=== PATIENT | female | born 1935 | race Caucasian/White ===

== ENCOUNTER 2017-12-23 12:57 | Emergency (ER) | payer OTHER ==
[~2017-12-23] VITALS: Ht 154.9 cm; Wt 76.2 kg
[2017-12-23] MEDS ORDERED: ASPIR 8181 MG PO (13:21)
[2017-12-23] MEDS ORDERED: FISH OIL 1,001000 M2 PO (13:21)
[2017-12-23] MEDS ORDERED: KLOR-CON 1010 MEQ PO (13:22)
[2017-12-23] MEDS ORDERED: NEXIUM40 MG PO (13:22)
[2017-12-23] MEDS ORDERED: PREDNISONE 5 MG5 M1 PO (13:23)
[2017-12-23] MEDS ORDERED: VITAMIN D1000 UNI1 PO (13:23)
[2017-12-23] MEDS ORDERED: FOLIC ACID1 MG PO (13:23)
[2017-12-23] MEDS ORDERED: PREDNISONE 10 M10 MG PO (13:23)
[2017-12-23] MEDS ORDERED: TRAZODONE 150150 M1 PO ×2 (13:24→13:25)
[2017-12-23] MEDS ORDERED: XANAX 0.25 MG0.25 MG PO (13:24)
[2017-12-23] MEDS ORDERED: ARICEPT 5 MG TAB5 MG PO (13:26)
[2017-12-23] MEDS ORDERED: METHOTREXATE 22.5 MG PO (13:26)
[2017-12-23] MEDS ORDERED: DEMADEX20 MG PO (13:26)
[2017-12-23] MEDS ORDERED: ULTRAM 50MG TAB50 MG PO (13:27)
[2017-12-23] MEDS ORDERED: MIRALAX17 GM PO (13:27)
[2017-12-23 15:37] LABS: HEMATOCRIT 36.3 % (37.0-47.0); HEMOGLOBIN 12.1 gm/dL (12.0-15.0); MCHC 33.3 g/dL (28.0-37.0); MCV 93.1 fL (80.0-100.0); MPV 7.9 fl. (7.2-11.1); NUCLEATED RBCS 0 /100WBC; PLATELET COUNT* 243 thou/uL (150-400); RDW-CV 15.8 % (10.5-14.5); WBC 8.3 thou/uL (4.0-11.0)
[2017-12-23 15:46] LABS: ANION GAP 9 mmol/L (7-16); BUN 12 mg/dL (7-18); CALCIUM 8.7 mg/dL (8.5-10.1); CHLORIDE 106 mmol/L (98-107); CO2 25 mmol/L (21-32); GLUCOSE 124 mg/dL (70-99); POTASSIUM 4.2 mmol/L (3.5-5.1); PROTIME 9.4 Seconds (9.20-11.50); SODIUM 140 mmol/L (136-145)
[2017-12-23 15:53] LABS: ALBUMIN 2.7 g/dL (3.4-5.0); ALKALINE PHOSPHATASE 82 U/L (46-116); SGOT 19 U/L (15-37); SGPT 23 U/L (30-65); TOTAL BILIRUBIN 0.5 mg/dL (<0.1-1.0); TOTAL PROTEIN 5.9 g/dL (6.4-8.2); TROPONIN-I LEVEL <0.06 ng/mL (<0.06)
[2017-12-23 16:08] LABS: ABSOLUTE LYMPHOCYTES 0.6 thou/uL (0.8-5.3); ABSOLUTE MONOCYTES 0.3 thou/uL (0.0-1.2); ABSOLUTE NEUTROPHILS 7.4 thou/uL (1.6-8.1); PLATELET ESTIMATE ADEQUATE
--- NOTE | 2017-12-23 16:54 | EKG ---
[place] [address] ELECTROCARDIOGRAM REPORT Name: PINGRAFAEL Room: [facility]#: [id number] Admission: 12/23/17 Attend Phys: Discharge: Date of : 33 Report #: [id number] THIS REPORT FOR: //name// [facility] ED Test Date: 2017-12-23 Test Time: 14:25:32 Pat Name: RAFAEL FENG Department: Room: Gender: F Tv Production Assistant: Laurie JOINER : 1935 Requested By: Gloria Gallagher Order Number: [id number] MD: Silvino Davis Measurements Intervals [place] Rate: 91 P: HI: QRS: -40 QRSD: 83 T: 61 QT: 343 QTc: 423 Interpretive Statements sinus rhythm Left anterior fascicular block Compared to ECG 07/30/2008 10:07:10 Sinus bradycardia no longer present Electronically Signed On 12-23-2017 16:54:00 ACCREDITED PHARMACY TECHNICIAN by Silvino Davis [email or web address] <ELECTRONICALLY SIGNED> By: Silvino Davis MD, [facility] 12/23/17 1654 D: 01/1424 1425 Silvino Davis MD, FACC /EPI
[2017-12-23 17:33] LABS: INFLUENZA A ANTIGEN None Detected (None Detect); INFLUENZA B ANTIGEN None Detected (None Detect)
[2017-12-23] MEDS ORDERED: PREDNISONE 20 M20 M1 PO (17:38)
[2017-12-23] MEDS ORDERED: SPACERADULT INH (17:38)
[2017-12-23] MEDS ORDERED: PROAIR HFA8.5 GM INH (17:38)
[2017-12-23] MEDS ORDERED: ZPAK PO (17:38)
[2017-12-23 18:02] VITALS: BP 140/64
== END 2017-12-23 18:04 | disposition home or self-care (01) ==
LOC: M.ERS 12:57
PROVIDERS: Nurse Practitioner Family
DX: J20.9 Acute bronchitis, unspecified (principal); F41.9 Anxiety disorder, unspecified; Z88.1 Allergy status to other antibiotic agents; Z88.5 Allergy status to narcotic agent; Z88.0 Allergy status to penicillin; Z88.2 Allergy status to sulfonamides; Z88.8 Allergy status to other drugs, medicaments and biological substances; Z90.710 Acquired absence of both cervix and uterus; Z98.890 Other specified postprocedural states

== ENCOUNTER 2018-01-04 08:48 | Inpatient (IN) | payer OTHER ==
[~2018-01-04] VITALS: Ht 152.4 cm; Wt 72.6 kg
[~2018-01-04 08:48] MED LIST: ARICEPT 5 MG TAB5 MG PO; ASPIR 8181 MG PO; DEMADEX20 MG PO; FISH OIL 1,001000 M2 PO; FOLIC ACID1 MG PO; KLOR-CON 1010 MEQ PO; METHOTREXATE 22.5 MG PO; MIRALAX17 GM PO; NEXIUM40 MG PO; PREDNISONE 10 M10 MG PO; PREDNISONE 20 M20 M1 PO; PREDNISONE 5 MG5 M1 PO; PROAIR HFA8.5 GM INH; SPACERADULT INH; TRAZODONE 150150 M1 PO; ULTRAM 50MG TAB50 MG PO; VITAMIN D1000 UNI1 PO; XANAX 0.25 MG0.25 MG PO; ZPAK PO
[2018-01-04 09:02] VITALS: BP 123/62
[2018-01-04 10:01] LABS: HEMATOCRIT 35.2 % (37.0-47.0); HEMOGLOBIN 11.7 gm/dL (12.0-15.0); MCH 31.1 pg (26.0-34.0); MCHC 33.3 g/dL (28.0-37.0); MCV 93.5 fL (80.0-100.0); NUCLEATED RBCS 0 /100WBC; PLATELET COUNT* 263 thou/uL (150-400); RBC 3.77 mil/uL (4.20-5.00); RDW-CV 16.2 % (10.5-14.5)
[2018-01-04 10:07] LABS: CALCIUM 9.2 mg/dL (8.5-10.1); CREATININE 1.1 mg/dL (0.6-1.3); POTASSIUM 3.8 mmol/L (3.5-5.1)
[2018-01-04 10:12] LABS: ALBUMIN 2.5 g/dL (3.4-5.0); TOTAL BILIRUBIN 0.9 mg/dL (<0.1-1.0); TOTAL PROTEIN 6.3 g/dL (6.4-8.2)
[2018-01-04 10:24] LABS: ABSOLUTE LYMPHOCYTES 0.2 thou/uL (0.8-5.3); ABSOLUTE MONOCYTES 0.2 thou/uL (0.0-1.2); ABSOLUTE NEUTROPHILS 17.6 thou/uL (1.6-8.1)
[2018-01-04 10:25] LABS: PLATELET ESTIMATE ADEQUATE
[2018-01-04 10:57] LABS: URINE BILIRUBIN NEGATIVE (Negative); URINE BLOOD NEGATIVE (Negative); URINE CLARITY SL CLOUDY; URINE COLOR YELLOW; URINE GLUCOSE-RANDOM NEGATIVE (Negative); URINE KETONES NEGATIVE (Negative); URINE LEUKOCYTES-REFLEX NEGATIVE (Negative); URINE PROTEIN NEGATIVE (Negative); URINE SPECIFIC GRAVITY 1.015 (1.005-1.030); URINE UROBILINOGEN 0.2 E.U./dl (0.2-1.0)
[2018-01-04 10:59] LABS: URINE NITRITE-REFLEX POSITIVE (Negative)
[2018-01-04 11:06] LABS: BACTERIA-REFLEX >30 Many /HPF (None Seen); CASTS None Seen /LPF (None Seen); CRYSTALS None Seen /LPF (None Seen); SQUAMOUS 4-10 Moderate /LPF (0-3); URINE RBC None Seen /HPF (0-2); WBC CLUMPS Few (None Seen)
[2018-01-04 18:15] VITALS: BP 118/62
[2018-01-04 18:53] VITALS: BP 111/58
[2018-01-04 19:45] VITALS: BP 142/70
[2018-01-05 04:14] LABS: HEMATOCRIT 28.8 % (37.0-47.0); HEMOGLOBIN 9.8 gm/dL (12.0-15.0); MCH 31.6 pg (26.0-34.0); MCHC 33.8 g/dL (28.0-37.0); MCV 93.3 fL (80.0-100.0); MPV 8.2 fl. (7.2-11.1); RBC 3.09 mil/uL (4.20-5.00); RDW-CV 16.1 % (10.5-14.5); WBC 9.9 thou/uL (4.0-11.0)
[2018-01-05 04:27] LABS: CALCIUM 8.6 mg/dL (8.5-10.1); CREATININE 0.9 mg/dL (0.6-1.3); MAGNESIUM 1.9 mg/dL (1.8-2.4); POTASSIUM 3.4 mmol/L (3.5-5.1); TOTAL BILIRUBIN 0.6 mg/dL (<0.1-1.0)
[2018-01-05 08:45] VITALS: BP 116/46
[2018-01-05 16:59] VITALS: BP 112/59
[2018-01-05 20:10] VITALS: BP 115/55
[2018-01-06 04:34] LABS: HEMATOCRIT 30.5 % (37.0-47.0); HEMOGLOBIN 10.2 gm/dL (12.0-15.0); MCH 31.2 pg (26.0-34.0); MCHC 33.6 g/dL (28.0-37.0); MCV 92.9 fL (80.0-100.0); MPV 8.4 fl. (7.2-11.1); RBC 3.29 mil/uL (4.20-5.00); RDW-CV 16.2 % (10.5-14.5)
[2018-01-06 04:46] LABS: CALCIUM 8.4 mg/dL (8.5-10.1); CREATININE 0.9 mg/dL (0.6-1.3); MAGNESIUM 1.9 mg/dL (1.8-2.4); POTASSIUM 3.3 mmol/L (3.5-5.1)
[2018-01-06 10:00] VITALS: BP 119/63
[2018-01-06 16:11] VITALS: BP 119/62
[2018-01-07] VITALS: BP 137/86
[2018-01-07 08:02] VITALS: BP 131/69
[2018-01-07 16:08] VITALS: BP 128/67
[2018-01-07 19:45] VITALS: BP 109/53
[2018-01-08 04:44] LABS: HEMATOCRIT 31.9 % (37.0-47.0); HEMOGLOBIN 10.8 gm/dL (12.0-15.0); MCH 31.2 pg (26.0-34.0); MCHC 33.7 g/dL (28.0-37.0); MCV 92.5 fL (80.0-100.0); MPV 8.6 fl. (7.2-11.1); RBC 3.45 mil/uL (4.20-5.00); RDW-CV 16.1 % (10.5-14.5); WBC 8.5 thou/uL (4.0-11.0)
[2018-01-08 04:49] LABS: CALCIUM 8.4 mg/dL (8.5-10.1); POTASSIUM 3.2 mmol/L (3.5-5.1)
[2018-01-08 09:45] VITALS: BP 138/74
[2018-01-08 17:09] VITALS: BP 122/76
[2018-01-08 20:15] VITALS: BP 138/77
[2018-01-09 04:05] LABS: HEMATOCRIT 30.8 % (37.0-47.0); HEMOGLOBIN 10.6 gm/dL (12.0-15.0); MCH 31.5 pg (26.0-34.0); MCHC 34.5 g/dL (28.0-37.0); MCV 91.3 fL (80.0-100.0); MPV 8.3 fl. (7.2-11.1); RBC 3.38 mil/uL (4.20-5.00); RDW-CV 16.3 % (10.5-14.5)
[2018-01-09 04:33] LABS: CALCIUM 8.8 mg/dL (8.5-10.1); CREATININE 1.1 mg/dL (0.6-1.3); POTASSIUM 3.5 mmol/L (3.5-5.1)
[2018-01-09] MEDS ORDERED: LIDOPATCH1 EACH TOP (09:37)
[2018-01-09] MEDS ORDERED: LEVAQUIN 500 M500 M1 PO (09:37)
[2018-01-09 10:42] VITALS: BP 138/77
== END 2018-01-09 13:03 | disposition home health service (06) | DRG 603 ==
LOC: M.ERS 08:48 → M.TBA-ER 10:57 → M.3W 10:57
PROVIDERS: Emergency Medicine Emergency Medical Services; ADMIT Internal Medicine
PROC: 05HB33Z Insertion of Infusion Device into Right Basilic Vein, Percutaneous Approach (ICD-10-PCS; principal; 2018-01-07)
DX: L03.116 Cellulitis of left lower limb (principal); R65.10 Systemic inflammatory response syndrome (SIRS) of non-infectious origin without acute organ dysfunction; N39.0 Urinary tract infection, site not specified; E44.1 Mild protein-calorie malnutrition; F03.90 Unspecified dementia, unspecified severity, without behavioral disturbance, psychotic disturbance, mood disturbance, and anxiety; I89.0 Lymphedema, not elsewhere classified; F41.9 Anxiety disorder, unspecified; L03.115 Cellulitis of right lower limb; Z90.49 Acquired absence of other specified parts of digestive tract; Z90.710 Acquired absence of both cervix and uterus; Z98.42 Cataract extraction status, left eye; Z98.41 Cataract extraction status, right eye; Z88.6 Allergy status to analgesic agent; Z88.0 Allergy status to penicillin; Z88.2 Allergy status to sulfonamides; Z88.8 Allergy status to other drugs, medicaments and biological substances; Z79.82 Long term (current) use of aspirin; Z79.899 Other long term (current) drug therapy; Z68.31 Body mass index [BMI] 31.0-31.9, adult